=== PATIENT | female | born 1955 | race Caucasian/White ===

== ENCOUNTER → 2017-12-03 15:27 | Outpatient (CLI) | payer OTHER, SELFPAY | PROVIDERS: Visit Provider Physician Assistant | DX: M54.5 Low back pain (principal) | CPT/HCPCS: 87086 ==

== ENCOUNTER → 2017-12-03 16:09 | Outpatient (CLI) | payer OTHER, SELFPAY ==
--- NOTE | 2017-12-03 | DI.CT.S_ITS ---
PROCEDURE: CT ABDOMEN PELVIS WO CON INDICATIONS: Left flank pain TECHNIQUE: Noncontrast 5 mm thick sections acquired from the diaphragms to the symphysis. 5 mm thick coronal and sagittal reformats were then performed. For radiation dose reduction, the following was used: automated exposure control, adjustment of mA and/or kV according to patient size. COMPARISON: None. FINDINGS: Image quality: Excellent. Lung bases: Lung bases are clear. Heart size is normal. Urinary system: Both kidneys are normal in size. No right-sided kidney stone but there is a 3 mm anterior mid left kidney and a 4 mm lower third posterior mid kidney calculus neither of which appear obstructive. No hydronephrosis or perinephric fat stranding. Both ureters appear non-dilated throughout their expected courses. Bladder wall thickness is normal; no calcified bladder stones. Other solid organs: Liver is normal in size. Gallbladder appears normal. Pancreas is normal in contours. Spleen is normal in size. No adrenal nodules. Peritoneum and bowel: Unenhanced bowel loops demonstrate normal wall thickness and caliber. No free fluid or air. Nodes and vessels: No retroperitoneal or mesenteric adenopathy by size criteria. Aorta and inferior vena cava are normal in caliber. Abdominal wall: No ventral hernias. Pelvis: No free pelvic fluid. No inguinal hernias or adenopathy. Bones: No suspicious bony lesions. No vertebral body compression fractures. IMPRESSION: There are nonobstructive 3 mm and 4 mm left-sided renal collecting system calculi, and no hydronephrosis or hydroureter is found. Along the course of the ureters through the pelvis bilateral pelvic phleboliths and arterial calcifications can be seen and therefore the exact course of the ureters through the retroperitoneum to the bladder level cannot be fully evaluated and proven to be free of a very small (1-2 mm) possible calculus. However, the absence of urinary tract distention more superiorly would argue that these calcifications are external to the ureters. Dictated by: Ashutosh Desouza M.D. on 12/03/2017 at 16:52 Approved by: Ashutosh Desouza M.D. on 12/03/2017 at 16:57
== END ==
PROVIDERS: Visit Provider Physician Assistant
DX: N20.0 Calculus of kidney (principal); R10.9 Unspecified abdominal pain
CPT/HCPCS: 74176; 87086

== ENCOUNTER 2017-12-06 01:00 | Emergency (ER) | payer OTHER, SELFPAY ==
[2017-12-06 01:05] VITALS: BP 149/118; PULSE 108; RESP 80; TEMP 36.3; O2SAT 97; BMI 28.9
--- NOTE | 2017-12-06 01:38 | ED.ABDPAIN ---
HPI - Abdominal Pain General Chief Complaint: Urogenital-Female Stated Complaint: KIDNEY STONE Time Seen by Provider: 12/06/17 01:37 Source: patient Mode of arrival: ambulatory Limitations: no limitations History of Present Illness HPI narrative: The patient presents tonight with left flank and left lower quadrant pain that started about 10:00 p.m. tonight. She initially developed achiness, then sharp pain at the site. She now has nausea and vomiting. She has no fever or chills. She denies diarrhea or constipation. She had similar achy pain 2 days ago, she was seen in clinic. A CT was ordered that revealed left renal stone, but no ureter stones. The CT did discuss pelvic calcifications that the radiologist felt were not related to the urinary system. The patient denies dysuria, or hematuria tonight. She has never had a prior bout problem with kidney stones. Related Data Home Medications Medication Instructions Recorded Confirmed ASPIRIN (Aspirin EC) 81 mg PO Q DAY #0 09/27/10 12/03/17 atorvastatin 20 mg tablet 80 mg PO QDAY #0 tab 12/03/17 12/03/17 clopidogrel 75 mg tablet 75 mg PO DAILY 12/03/17 12/03/17 Previous Rx's Medication Instructions Recorded tamsulosin 0.4 mg capsule 0.4 mg PO DAILY #30 cap 12/03/17 hydrocodone-acetaminophen [[place]] 1 tab PO Q4H PRN #10 tab 12/06/17 ondansetron [Zofran ODT] 4 mg PO Q4H PRN 4 Days #10 tab 12/06/17 Allergies Allergy/AdvReac Type Severity Reaction Status Date / Time No Known Drug Allergies Allergy Verified 12/03/17 15:14 Review of Systems Review of Systems All systems reviewed & are unremarkable except as noted in HPI and below Constitutional Denies headache(s) and Denies weakness ENT Ears, Nose, Mouth, and Throat: Denies headache(s), Denies neck pain and Denies sore throat Cardiovascular Denies chest pain, Denies irregular heart rhythm, Denies lightheadedness, Denies palpitations, Denies dyspnea, Denies dyspnea on exertion and Denies orthopnea Respiratory Denies cough, Denies dyspnea, Denies dyspnea on exertion and Denies wheezing Gastrointestinal Gastrointestinal: Reports abdominal pain, Denies change in bowel habits, Denies diarrhea, Reports nausea and Reports vomiting Genitourinary Denies hematuria and Denies dysuria Musculoskeletal Denies back pain and Denies neck pain Integumentary/Breasts Denies rash Neurologic Denies headache(s) and Denies weakness Endocrine Denies palpitations Allergic/Immunologic Denies wheezing PFSH Medical History Hyperlipidemia (Acute) Kidney stone (Acute) Surgical History History of appendectomy (Acute) Social History Smoking Status: Former smoker alcohol intake: never Exam Initial Vital Signs Initial Vital Signs: Vital Signs Temperature 97.3 F L 12/06/17 01:05 Pulse Rate 108 H 12/06/17 01:05 Respiratory Rate 80 H 12/06/17 01:05 Blood Pressure 149/118 H 12/06/17 01:05 Pulse Oximetry 97 12/06/17 01:05 Const General: cooperative, healthy appearing and in distress (mild) HENMT Throat: posterior oropharynx normal Neck Neck: No JVD Resp Effort & Inspection: normal respiratory effort, able to speak in complete sentences, no respiratory distress and no use of accessory muscles Auscultation: clear to auscultation bilaterally, no rales, no rhonchi and no wheezes Cardio Rate: regular rate Rhythm: regular rhythm Heart Sounds: no click, no gallops, no murmurs and no rubs Pulses: normal peripheral pulses GI Inspection: non-distended Palpation: soft, no hepatosplenomegaly, No guarding, No pulsatile mass and tender (LLQ, but without peritoneal signs.) Auscultation: normal bowel sounds Back/Spine/Pelvis Back: No CVA tenderness Skin General: no rashes or lesions noted Neuro General: alert, oriented x3, gait normal and no focal motor deficits Speech: speech normal Extrem General: full ROM and no clubbing, cyanosis or edema Course Course Narrative: The patient required IV hydration. She had a couple bouts of pain, but prior to discharge she was pain-free. She had a CT 2 days ago showing left renal calculi. She has hematuria tonight. I think she is or has passed a stone. She is doing much better at the time of discharge. Orders Ordered: ED Orders 12/06/17 01:48 Complete Blood Count AUTO DIFF Stat Comprehensive Metabolic Panel Stat 12/06/17 05:00 UA Complete [Urinalysis and Microscopic] Stat Discontinued Medications Hydrocodone Bitart/Acetaminophen (Vicodin Prepack) 1 bottle MISC SEEINSTR ONE Stop: 12/06/17 05:39 Last Admin: 12/06/17 06:08 Dose: 1 bottle Hydromorphone HCl (Dilaudid) 1 mg IV NOW ONE Stop: 12/06/17 02:45 Last Admin: 12/06/17 02:49 Dose: 1 mg Hydromorphone HCl (Dilaudid) 1 mg IV NOW ONE Stop: 12/06/17 04:09 Last Admin: 12/06/17 05:01 Dose: 1 mg Sodium Chloride (Normal Saline 0.9%) 1,000 mls @ 150 mls/hr IV CONT TIARA Last Admin: 12/06/17 02:08 Dose: 150 mls/hr Ketorolac Tromethamine (Toradol) 30 mg IV NOW ONE Stop: 12/06/17 01:55 Last Admin: 12/06/17 02:08 Dose: 30 mg Ondansetron HCl (Zofran) 4 mg IV NOW ONE Stop: 12/06/17 01:55 Last Admin: 12/06/17 02:08 Dose: 4 mg Ondansetron HCl (Zofran) 4 mg IV NOW ONE Stop: 12/06/17 05:38 Last Admin: 12/06/17 06:08 Dose: 4 mg Ondansetron HCl (Zofran Odt Prepack) 1 bottle MISC SEEINSTR ONE Stop: 12/06/17 05:39 Last Admin: 12/06/17 06:08 Dose: 1 bottle Vital Signs - 8 hr 12/06/17 01:05 12/06/17 04:00 12/06/17 05:33 Temperature 97.3 F L Pulse Rate 108 H 72 80 Respiratory Rate 80 H 18 18 Blood Pressure 149/118 H Blood Pressure [Left Arm] 130/77 113/61 Pulse Oximetry 97 96 97 MDM - Abdominal Pain Lab Data Result diagrams: 12/06/17 01:48 12/06/17 01:48 Lab Results 12/06/17 12/06/17 12/06/17 Range/Units 01:48 01:48 05:00 WBC 10.3 (4.5-11.0) X10^3/uL RBC 4.94 (4.0-5.2) X10^6/uL Hgb 14.2 (12.0-16.0) g/dL Hct 40.3 (36-46) % MCV 81.5 (80-100) fL MCH 28.7 (26-34) PG MCHC 35.2 (30-36) % RDW 14.1 (11.6-14.8) % Plt Count 237 (150-400) X10^3/uL Neut % (Auto) 87.4 H (50-75) % Lymph % (Auto) 8.1 L (25-40) % Stearns % (Auto) 3.9 (3-14) % Eos % (Auto) 0.4 L (2-4) % Baso % (Auto) 0.2 (0-2) % Neut # (Auto) 9000 H (2794-2074) /uL Sodium 143 (137-145) mmol/L Potassium 3.3 L (3.4-5.1) mmol/L Chloride 105 (98-107) mmol/L Carbon Dioxide 24 (22-32) mmol/L BUN 12 (7-17) mg/dL Creatinine 0.80 (0.52-1.04) mg/dL Estimated GFR > 60.0 (>60) mL/min BUN/Creatinine Ratio 15.0 (6-22) Glucose 152 H (80-110) mg/dL Calcium 9.3 (8.4-10.2) mg/dL Total Bilirubin 0.8 (0.2-1.3) mg/dL AST 22 (14-36) IU/L ALT 40 (9-52) IU/L Alkaline Phosphatase 82 (38-126) U/L Total Protein 7.2 (6.3-8.2) g/dL Albumin 4.7 (3.5-5.0) g/dL Globulin 2.5 (1.7-4.1) g/dL Albumin/Globulin Ratio 1.9 (1.0-2.8) Urine Color Yellow Urine Appearance Clear Urine pH 5.0 (4.5-8.0) Ur Specific [place] >=1.030 H (1.000-1.035) Urine Protein Trace H (Negative) Urine Glucose (UA) Negative (Normal) g/dL Urine Ketones Trace H (NEGATIVE) Urine Occult Blood 3+ H (Negative) Urine Nitrate Negative (Negative) Urine Bilirubin Negative (NEGATIVE) Urine Urobilinogen 0.2 (0.2) E.U./dL Ur Leukocyte Esterase Negative (NEGATIVE) Urine RBC 10-30/hpf H (0-5/HPF) Urine WBC None seen (0-5/HPF) Ur Squamous Epith Cells 1-5 /hpf Calcium Oxalate Crystal Moderate H (None) Urine Bacteria Occasional (0-1) (None) Hyaline Casts 1-5/lpf (None) Ur Culture Indicated? Cult not indicated Micro UA Comment Not Reportable MDM Narrative Medical decision making narrative: She has hematuria and symptoms consistent with a kidney stone. She has been discharged home on [place] for pain and Zofran for nausea. Discharge Plan Departure Patient Disposition: Home Clinical Impression: Kidney stone on left side Discharge Date/Time: 12/06/17 06:15 Interventions: ED Discharge Assessment Last Done: 12/06/17 06:15 Instructions: DI for Kidney Stones Activity Restrictions/Additional Instructions: Drink plenty of water, be sure you are urinating regularly. [place] every 4 hr as needed for nausea. Her Zofran every 4 hr as needed for nausea. Return here for worsening pain, fever or persistent vomiting. Screening her urine to check for a passed kidney stone. Follow up with her physician next week if symptoms are ongoing. Prescriptions: New hydrocodone-acetaminophen [[place]] 5-325 mg tablet 1 tab PO Q4H PRN (Reason: pain) Qty: 10 RF: 0 ondansetron [Zofran ODT] 4 mg tablet,disintegrating 4 mg PO Q4H PRN (Reason: nausea and vomiting) 4 Days Qty: 10 RF: 0 No Action clopidogrel 75 mg tablet 75 mg PO DAILY RF: 0 tamsulosin [Flomax] 0.4 mg capsule 0.4 mg PO DAILY Qty: 30 RF: 0 ASPIRIN (Aspirin EC) 81 mg PO Q DAY Qty: 0 RF: 0 atorvastatin [Lipitor] 20 mg tablet 80 mg PO QDAY Qty: 0 RF: 0
[2017-12-06 01:57] LABS: Add Manual Diff / Slide Review NO; Basophils Percent Auto 0.2 % (0-2); Eosinophils Percent Auto 0.4 % (2-4); Hematocrit 40.3 % (36-46); Hemoglobin 14.2 g/dL (12.0-16.0); Lymphocytes Percent Auto 8.1 % (25-40); Mean Corpuscular HGB Conc 35.2 % (30-36); Mean Corpuscular Hemoglobin 28.7 PG (26-34); Mean Corpuscular Volume 81.5 fL (80-100); Monocytes Percent Auto 3.9 % (3-14); Neutrophils Absolute Auto 9000 /uL (3000-5900); Neutrophils Percent Auto 87.4 % (50-75); Platelet Count 237 X10^3/uL (150-400); Red Blood Cell Count 4.94 X10^6/uL (4.0-5.2); Red Cell Distribution Width 14.1 % (11.6-14.8); White Blood Cell Count 10.3 X10^3/uL (4.5-11.0)
[2017-12-06 02:04] LABS: Alanine Aminotransferase 40 IU/L (9-52); Albumin 4.7 g/dL (3.5-5.0); Albumin Globulin Ratio 1.9 (1.0-2.8); Alkaline Phosphatase 82 U/L (38-126); Aspartate Aminotransferase 22 IU/L (14-36); Bilirubin Total 0.8 mg/dL (0.2-1.3); Blood Urea Nitrogen 12 mg/dL (7-17); Calcium 9.3 mg/dL (8.4-10.2); Carbon Dioxide 24 mmol/L (22-32); Chloride 105 mmol/L (98-107); Estimated Glomerular Filt Rate > 60.0 mL/min (>60); Globulin 2.5 g/dL (1.7-4.1); Glucose 152 mg/dL (80-110); HEMOLYSIS 15 (0-50); Potassium 3.3 mmol/L (3.4-5.1); Sodium 143 mmol/L (137-145); Total Protein 7.2 g/dL (6.3-8.2)
[2017-12-06] MEDS: KETOROLAC 60 MG/2 ML VIAL 30 MG IV (02:08)
[2017-12-06] MEDS: ONDANSETRON 4 MG/2 ML INJ IV ×2 (02:08→06:08)
[2017-12-06] MEDS: SODIUM CHLORIDE 0.9% 1,000 ML 150 ML IV (02:08)
[2017-12-06] MEDS: HYDROMORPHONE 1 MG INJ IV ×2 (02:49→05:01)
--- NOTE | 2017-12-06 03:53 | PC.NURSE ---
Pt's significant other came out to [facility] stating pt is in pain again. Dr Fernandez aware.
[2017-12-06 04:00] VITALS: BP 130/77; PULSE 72; RESP 18; O2SAT 96
[2017-12-06 05:08] LABS: WBC Urine None Seen (0-5/HPF)
[2017-12-06 05:09] LABS: Appearance Urine UA CLEAR; Bilirubin Urine UA NEGATIVE (NEGATIVE); Color Urine UA YELLOW; Glucose Urine UA NEGATIVE (Normal); Ketones Urine UA TRACE (NEGATIVE); Leukocyte Esterase Urine UA NEGATIVE (NEGATIVE); Nitrite Urine UA Negative (Negative); Occult Blood Urine UA 3+ (Negative); Protein Urine UA TRACE (Negative); Specific Gravity Urine UA >=1.030 (1.000-1.035); Urobilinogen Urine UA 0.2 E.U./dL (0.2)
[2017-12-06 05:14] LABS: RBC Urine 10-30/HPF (0-5/HPF); Squamous Epithelial Cell Urine 1-5 /HPF
[2017-12-06 05:15] LABS: Bacteria Urine Occasional (0-1); Calcium Oxalate Crystals Urine Moderate; Hyaline Casts Urine 1-5/LPF
[2017-12-06 05:16] LABS: Culture Indicated Urine Cult Not Indicated
[2017-12-06 05:33] VITALS: BP 113/61; PULSE 80; RESP 18; O2SAT 97
[2017-12-06] MEDS: ONDANSETRON 4 MG ODT PREPACK 1 BOTTLE MISC (06:08)
[2017-12-06] MEDS: HYDROCODONE/ACET 5/325 PREPACK 1 BOTTLE MISC (06:08)
== END 2017-12-06 06:15 | disposition home or self-care (01) ==
PROVIDERS: Emergency Provider Emergency Medicine
DX: N20.0 Calculus of kidney (principal)
CPT/HCPCS: 36591; 80053; 81001; 85025; 96361; 96374; 96375; 96376; 99283; 99284; J1170; J1885; J2405

== ENCOUNTER → 2017-12-26 07:08 | Outpatient (CLI) | payer OTHER, SELFPAY ==
--- NOTE | 2017-12-26 | DI.RAD.S_ITS ---
PROCEDURE: XR KUB INDICATIONS: KIDNEY STONES TECHNIQUE: One view of the abdomen acquired. COMPARISON: [facility], CR, XR ABDOMEN 1 VIEW, 12/15/2017, 12:30. FINDINGS: Surgical changes and devices: A left-sided ureteral stent is noted.. Bowel: Bowel gas pattern is normal. Soft tissues: No suspicious abdominal calcifications. Visualized solid organ contours appear normal in size. Previously described 5 mm calcification in left hemipelvis is no longer present. Bones: No suspicious bony lesions. IMPRESSION: No gross renal calculi or ureteral calculi are seen. Left-sided ureteral stent in place. Dictated by: Geovani Tuttle M.D. on 12/26/2017 at 9:05 Approved by: Geovani Tuttle M.D. on 12/26/2017 at 9:07
[2017-12-26 08:27] LABS: BUN Creatinine Ratio 13.3 (6-22); Blood Urea Nitrogen 8 mg/dL (7-17); Calcium 9.6 mg/dL (8.4-10.2); Carbon Dioxide 27 mmol/L (22-32); Chloride 105 mmol/L (98-107); Cholesterol 140 mg/dL (140-199); Estimated Glomerular Filt Rate > 60.0 mL/min (>60); Glucose 121 mg/dL (80-110); HDL Cholesterol 43 mg/dL (40-60); HEMOLYSIS < 15 (0-50); LDL Cholesterol Calculated 76 mg/dL (<100); Sodium 146 mmol/L (137-145); Triglycerides 105 mg/dL (35-150)
== END ==
PROVIDERS: PCP Physician Assistant; Visit Provider Specialist
DX: N20.0 Calculus of kidney (principal); Z96.0 Presence of urogenital implants; I25.10 Atherosclerotic heart disease of native coronary artery without angina pectoris; I25.2 Old myocardial infarction; E87.6 Hypokalemia; R73.09 Other abnormal glucose
CPT/HCPCS: 36415; 74018; 80048; 80061

== ENCOUNTER → 2018-02-03 07:06 | Outpatient (CLI) | payer OTHER, SELFPAY ==
--- NOTE | 2018-02-03 07:11 | DI.RAD.S_ITS ---
PROCEDURE: XR KUB INDICATIONS: KIDNEY STONES TECHNIQUE: One view of the abdomen acquired. COMPARISON: [facility], CR, XR KUB, 12/26/2017, 7:12. FINDINGS: Surgical changes and devices: Left ureteral stent is removed. Bowel: Bowel gas pattern is normal. There is a large amount of stool in the right colon. Soft tissues: No suspicious abdominal calcifications. Visualized solid organ contours appear normal in size. Bones: No suspicious bony lesions. IMPRESSION: No residual renal calculi visualized. Dictated by: Ko Macario M.D. on 02/03/2018 at 8:07 Approved by: Ko Macario M.D. on 02/03/2018 at 8:07
[2018-02-03 08:39] LABS: Uric Acid 4.8 mg/dL (2.5-6.2)
[2018-02-05 13:56] LABS: Parathyroid Hormone Int 73 pg/mL (14-64)
== END ==
PROVIDERS: PCP Physician Assistant; Visit Provider Specialist
DX: N20.0 Calculus of kidney (principal)
CPT/HCPCS: 36415; 74018; 83970; 84550; 86304

== ENCOUNTER → 2018-06-16 08:11 | Outpatient (CLI) | payer OTHER, SELFPAY ==
[2018-06-16 09:54] LABS: Calcium 9.2 mg/dL (8.4-10.2); Uric Acid 4.3 mg/dL (2.5-6.2)
[2018-06-18 14:35] LABS: Parathyroid Hormone Int 86 pg/mL (14-64)
== END ==
PROVIDERS: Family Provider Physician Assistant; PCP Physician Assistant; Visit Provider Specialist
DX: N20.0 Calculus of kidney (principal)
CPT/HCPCS: 36415; 82310; 83970; 84550

== ENCOUNTER → 2019-01-21 08:21 | Outpatient (CLI) | payer OTHER, SELFPAY ==
[2019-01-21 08:31] LABS: Bacteria Urine None Seen; RBC Urine None Seen (0-5/HPF); WBC Urine None Seen (0-5/HPF)
[2019-01-21 09:13] LABS: Appearance Urine UA CLEAR; Bilirubin Urine UA NEGATIVE (NEGATIVE); Color Urine UA YELLOW; Glucose Urine UA NEGATIVE (Negative); Ketones Urine UA NEGATIVE (NEGATIVE); Leukocyte Esterase Urine UA NEGATIVE (NEGATIVE); Nitrite Urine UA NEGATIVE (Negative); Occult Blood Urine UA NEGATIVE (Negative); Protein Urine UA NEGATIVE (Negative); Specific Gravity Urine UA <=1.005 (1.000-1.035); Urobilinogen Urine UA 0.2 E.U./dL (0.2)
[2019-01-21 09:16] LABS: Hematocrit 42.1 % (36-46); Hemoglobin 14.7 g/dL (12.0-16.0); pH Urine UA 5.5 (4.5-8.0)
[2019-01-21 09:21] LABS: Culture Indicated Urine Cult Not Indicated; Urine Comments Microscopic Normal
[2019-01-21 10:01] LABS: Creatinine Urine Random 150.9 mg/dL; Protein (Total) Urine Random 9 mg/dL (0-12); Protein Creatinine Ratio Urine 0.05 GRAM/24H
[2019-01-21 10:06] LABS: Blood Urea Nitrogen 9 mg/dL (7-17); Calcium 9.7 mg/dL (8.4-10.2); Carbon Dioxide 29 mmol/L (22-32); Chloride 100 mmol/L (98-107); Estimated Glomerular Filt Rate > 60.0 mL/min (>60); Glucose 127 mg/dL (80-110); HEMOLYSIS < 15 (0-50); Potassium 3.6 mmol/L (3.4-5.1); Sodium 141 mmol/L (137-145)
[2019-01-23 15:14] LABS: Parathyroid Hormone Int 64 pg/mL (14-64)
== END ==
PROVIDERS: PCP Physician Assistant; Visit Provider Student in an Organized Health Care Education/Training Program
DX: N05.9 Unspecified nephritic syndrome with unspecified morphologic changes (principal); D64.9 Anemia, unspecified; N30.00 Acute cystitis without hematuria; R80.9 Proteinuria, unspecified; N25.81 Secondary hyperparathyroidism of renal origin
CPT/HCPCS: 36415; 80048; 81001; 82570; 83970; 84156; 85014; 85018

== ENCOUNTER → 2019-01-22 06:52 | Outpatient (CLI) | payer OTHER, SELFPAY ==
[2019-01-22 08:37] LABS: Alanine Aminotransferase 35 IU/L (9-52); Albumin 4.9 g/dL (3.5-5.0); Alkaline Phosphatase 63 U/L (38-126); Aspartate Aminotransferase 26 IU/L (14-36); BUN Creatinine Ratio 11.7 (6-22); Bilirubin Total 1.2 mg/dL (0.2-1.3); Blood Urea Nitrogen 7 mg/dL (7-17); Carbon Dioxide 30 mmol/L (22-32); Chloride 100 mmol/L (98-107); Cholesterol 140 mg/dL (140-199); Estimated Glomerular Filt Rate > 60.0 mL/min (>60); Globulin 2.4 g/dL (1.7-4.1); Glucose 121 mg/dL (80-110); HDL Cholesterol 49 mg/dL (40-60); HEMOLYSIS < 15 (0-50); LDL Cholesterol Calculated 72 mg/dL (<100); Potassium 3.5 mmol/L (3.4-5.1); Sodium 142 mmol/L (137-145); Total Protein 7.3 g/dL (6.3-8.2); Triglycerides 94 mg/dL (35-150)
== END ==
PROVIDERS: PCP Physician Assistant; Visit Provider Internal Medicine Cardiovascular Disease
DX: E78.01 Familial hypercholesterolemia (principal); I25.10 Atherosclerotic heart disease of native coronary artery without angina pectoris
CPT/HCPCS: 36415; 80053; 80061

== ENCOUNTER → 2019-01-29 16:19 | Outpatient (CLI) | payer OTHER, SELFPAY ==
[2019-01-29 17:38] LABS: Add Manual Diff / Slide Review NO; Basophils Absolute Auto 0 /uL (0-100); Basophils Percent Auto 0.7 % (0-2); Eosinophils Absolute Auto 100 /uL (0-450); Eosinophils Percent Auto 1.3 % (2-4); Hemoglobin 13.9 g/dL (12.0-16.0); Lymphocytes Absolute Auto 1200 /uL (1100-4500); Lymphocytes Percent Auto 21.2 % (25-40); Mean Corpuscular HGB Conc 34.7 % (30-36); Mean Corpuscular Hemoglobin 29.2 PG (26-34); Mean Corpuscular Volume 84.3 fL (80-100); Monocytes Absolute Auto 300 /uL (0-900); Monocytes Percent Auto 5.6 % (3-14); Neutrophils Absolute Auto 4100 /uL (1500-7000); Neutrophils Percent Auto 71.2 % (50-75); Platelet Count 264 X10^3/uL (150-400); Red Blood Cell Count 4.75 X10^6/uL (4.0-5.2); Red Cell Distribution Width 13.8 % (11.6-14.8); White Blood Cell Count 5.8 X10^3/uL (4.5-11.0)
[2019-01-29 17:50] LABS: Hemoglobin A1C% w Est Avg Glu 5.3 % (4.0-6.0)
[2019-01-29 19:09] LABS: Thyroid Stimulating Hormone 1.35 uIU/mL (0.47-4.68)
== END ==
PROVIDERS: PCP Physician Assistant; Visit Provider Hospitalist
DX: R63.4 Abnormal weight loss (principal)
CPT/HCPCS: 36415; 83036; 84443; 85025

== ENCOUNTER → 2019-02-06 08:22 | Outpatient (CLI) | payer OTHER, SELFPAY ==
--- NOTE | 2019-02-06 08:24 | DI.MG.S_ITS ---
BILATERAL DIGITAL SCREENING MAMMOGRAM 3D/2D WITH CAD: 02/06/2019 CLINICAL: Routine screening. Comparison is made to exams dated: 08/09/2015 mammogram, 07/31/2015 mammogram, and 04/29/2014 mammogram - [facility]. There are scattered fibroglandular elements in both breasts. Current study was also evaluated with a Computer Aided Detection (CAD) system. No significant masses, calcifications, or other findings are seen in either breast. There has been no significant interval change. IMPRESSION: NEGATIVE There is no mammographic evidence of malignancy. A 1 year screening mammogram is recommended. This exam was interpreted at Station ID: [id number]. NOTE: For mammograms, a report in lay terms will be sent to the patient. Approximately 15% of breast malignancies will not be visualized mammographically. In the management of a palpable breast mass, a negative mammogram must not discourage biopsy of a clinically suspicious lesion. Electronically Signed By: Sulaiman brasher/estela:02/07/2019 11:24:28 letter sent: Normal Exam ACR BI-RADS Category 1: Negative [id number]
== END ==
PROVIDERS: PCP Physician Assistant; Visit Provider Physician Assistant
DX: Z12.31 Encounter for screening mammogram for malignant neoplasm of breast (principal)
CPT/HCPCS: 77063; 77067

== ENCOUNTER → 2019-11-16 07:16 | Outpatient (CLI) | payer OTHER, SELFPAY ==
[2019-11-16 08:44] LABS: Hematocrit 40.5 % (36-46)
[2019-11-16 08:54] LABS: Creatinine Urine Random 21.8 mg/dL; Protein (Total) Urine Random 13 mg/dL (0-12); Protein Creatinine Ratio Urine 0.59 GRAM/24H
[2019-11-16 08:58] LABS: BUN Creatinine Ratio 17.9 (6-22); Blood Urea Nitrogen 10 mg/dL (7-17); Calcium 9.4 mg/dL (8.4-10.2); Carbon Dioxide 30 mmol/L (22-32); Chloride 102 mmol/L (98-107); Estimated Glomerular Filt Rate > 60.0 mL/min (>60); Glucose 95 mg/dL (80-110); HEMOLYSIS < 15 (0-50); Potassium 3.8 mmol/L (3.4-5.1); Sodium 139 mmol/L (137-145)
[2019-11-17 07:13] LABS: Parathyroid Hormone Int 41 pg/mL (15-65)
== END ==
PROVIDERS: PCP Student in an Organized Health Care Education/Training Program; Referring Provider Student in an Organized Health Care Education/Training Program; Visit Provider Student in an Organized Health Care Education/Training Program
DX: N05.9 Unspecified nephritic syndrome with unspecified morphologic changes (principal); R80.9 Proteinuria, unspecified; D64.9 Anemia, unspecified; N25.81 Secondary hyperparathyroidism of renal origin
CPT/HCPCS: 36415; 80048; 82570; 83970; 84156; 85014; 85018

== ENCOUNTER 2020-03-23 19:39 | Emergency (ER) | payer OTHER, SELFPAY ==
[2020-03-23 19:45] VITALS: BP 164/91; PULSE 100; RESP 18; TEMP 36.8; O2SAT 96
--- NOTE | 2020-03-23 19:54 | ED.GENADULT ---
HPI - General Adult General Chief complaint: Skin/Abscess/Foreign Body Stated complaint: states infection left ear and cheek Time Seen by Provider: 03/23/20 19:40 Source: patient Mode of arrival: Ambulatory Limitations: no limitations History of Present Illness HPI narrative: Patient is a 64-year-old female. Nondiabetic who is here for evaluation of redness and pain to the outside of her left ear. Has been going on for the past day. She thinks that is spreading down to her cheek on the left side. No problems swallowing. No problems hearing no trauma. She is unsure as to how the symptoms started. Related Data Home Medications Medication Instructions Recorded Confirmed ASPIRIN (Aspirin EC) 81 mg PO Q DAY #0 09/27/10 01/29/19 clopidogrel 75 mg tablet 75 mg PO DAILY 12/03/17 01/29/19 Previous Rx's Medication Instructions Recorded tamsulosin 0.4 mg capsule 0.4 mg PO DAILY #30 cap 12/03/17 clotrimazole-betamethasone 1 1 applictn TOP BID #45 gram 06/04/19 %-0.05 % topical cream atorvastatin 20 mg tablet 80 mg PO QDAY #90 tab 09/15/19 amoxicillin-pot clavulanate 1 tab PO BID 6 Days #12 tab 03/23/20 [Augmentin] Allergies Allergy/AdvReac Type Severity Reaction Status Date / Time No Known Drug Allergies Allergy Verified 01/29/19 15:45 Review of Systems Constitutional Constitutional: Denies chills and Denies fever(s) ENT Ears, Nose, Mouth, and Throat: Denies vertigo, Denies dizziness, Denies ear discharge, Reports otalgia, Denies sinus pressure and Denies sore throat Comments: Redness around her left ear Cardiovascular Cardiovascular: Denies dyspnea Respiratory Respiratory: Denies cough and Denies dyspnea Integumentary/Breasts Comments: Redness around her left ear Neurologic Neurologic: Denies vertigo and Denies dizziness Hematologic/Lymphatic Hematologic/Lymphatic: Denies easy bleeding and Denies easy bruising Allergic/Immunologic Allergic/Immunologic: Denies urticaria Patient History Medical History Hyperlipidemia Kidney stone Surgical History History of appendectomy Social History Smoking Status: Former smoker Tobacco: How many years used: 25 second hand exposure: No alcohol intake: never substance use type: does not use Smoking Status: Former smoker Substance Use Type: does not use Exam Initial Vital Signs Initial Vital Signs: Vital Signs Temperature 98.2 F 03/23/20 19:45 Pulse Rate 100 H 03/23/20 19:45 Respiratory Rate 18 03/23/20 19:45 Blood Pressure 164/91 H 03/23/20 19:45 Pulse Oximetry 96 03/23/20 19:45 Const General: cooperative and comfortable HENMT Head: normal to inspection and normocephalic Ears: TM's normal bilaterally, EAC's normal, external ear abnormal auricular tenderness on the left and other (Redness around the a Auricular area); no auricular hematomas and hearing grossly not impaired Nose: external nose normal Face and sinus: other (Redness in the pre-auricular area left side of face) Mouth: oral mucosae normal Skin Other: See HEENT section Neuro General: patient alert, patient awake and patient oriented x3 Extrem General: capillary refill normal Psych Appearance: grossly normal and well kempt Course Orders Ordered: Discontinued Medications Amoxicillin/Clavulanate Potassium (Amoxicillin/Clav 875/125 Mg) 1 tab PO NOW ONE Stop: 03/23/20 19:56 Last Admin: 03/23/20 19:58 Dose: 1 tab Documented by: RMARTIN Amoxicillin/Clavulanate Potassium (Amoxicillin/Clav 875/125 Mg) 1 tab PO NOW ONE Stop: 03/23/20 19:59 Last Admin: 03/23/20 20:03 Dose: 1 tab Documented by: RMARTIN Amoxicillin/Clavulanate Potassium (Amoxicillin/Clav 875/125 Mg) 1 tab PO NOW ONE Stop: 03/23/20 19:59 Last Admin: 03/23/20 20:03 Dose: 1 tab Documented by: RMMCKINLEYIN Vital Signs Vital signs: Vital Signs - 8 hr 03/23/20 19:45 Temperature 98.2 F Pulse Rate 100 H Respiratory Rate 18 Blood Pressure 164/91 H Pulse Oximetry 96 Medical Decision Making MDM Narrative Medical decision making narrative: She has redness around the a regular area of the left ear and on the pre auricular area on the left side of her face. There is no abscess. No hematoma. The external auditory canal and tympanic membrane are unremarkable. There is no signs of trauma. Patient was given a dose of antibiotics here in the ER. Given the fact that tomorrow is a holiday and all the pharmacies are closed she was given a 2nd dose of antibiotics that she can take tomorrow and then a prescription that she can fill for the remainder of the course. Feel we can hold on radiologic studies. She has no indication of sepsis. She was given return precautions and follow-up instructions. She expressed understanding and agreement. Discharge Plan Departure Patient Disposition: Home Clinical Impression: Cellulitis Instructions: DI for Cellulitis -- Adult Activity Restrictions/Additional Instructions: Take the antibiotics as directed. Return to the emergency department for any new or worsening symptoms Prescriptions: New amoxicillin-pot clavulanate [Augmentin] 875-125 mg tablet 1 tab PO BID 6 Days Qty: 12 RF: 0 No Action clopidogrel 75 mg tablet 75 mg PO DAILY RF: 0 tamsulosin [Flomax] 0.4 mg capsule 0.4 mg PO DAILY Qty: 30 RF: 0 ASPIRIN (Aspirin EC) 81 mg PO Q DAY Qty: 0 RF: 0 clotrimazole-betamethasone [Lotrisone] 1-0.05 % cream 1 applictn TOP BID Qty: 45 RF: 0 atorvastatin [Lipitor] 20 mg tablet 80 mg PO QDAY Qty: 90 RF: 0 Referrals: Cher Simms MD [Primary Care Provider] -
[2020-03-23] MEDS: AMOXICILLIN/CLAV 875/125 MG 1 TAB PO ×3 (19:58→20:03)
== END 2020-03-23 20:08 | disposition home or self-care (01) ==
PROVIDERS: Emergency Provider Emergency Medicine; PCP Student in an Organized Health Care Education/Training Program
DX: L03.211 Cellulitis of face (principal); E78.5 Hyperlipidemia, unspecified; Z87.442 Personal history of urinary calculi
CPT/HCPCS: 99281; 99283

== ENCOUNTER → 2020-07-18 17:35 | Outpatient (CLI) | payer OTHER, SELFPAY ==
[2020-07-18 18:03] LABS: HEMOLYSIS < 15 (0-50); Potassium 3.7 mmol/L (3.4-5.1)
[2020-07-18 18:04] LABS: BUN Creatinine Ratio 25.8 (6-22); Blood Urea Nitrogen 17 mg/dL (7-17); Calcium 9.7 mg/dL (8.4-10.2); Carbon Dioxide 27 mmol/L (22-32); Chloride 105 mmol/L (98-107); Estimated Glomerular Filt Rate > 60.0 mL/min (>60); Glucose 112 mg/dL (80-110); Sodium 140 mmol/L (137-145)
== END ==
PROVIDERS: PCP Student in an Organized Health Care Education/Training Program; Referring Provider Student in an Organized Health Care Education/Training Program; Visit Provider Student in an Organized Health Care Education/Training Program
DX: E87.6 Hypokalemia (principal)
CPT/HCPCS: 36415; 80048

== ENCOUNTER → 2020-07-26 07:37 | Outpatient (CLI) | payer OTHER, SELFPAY ==
[2020-07-26 08:47] LABS: BUN Creatinine Ratio 25.4 (6-22); Blood Urea Nitrogen 15 mg/dL (7-17); Calcium 9.5 mg/dL (8.4-10.2); Carbon Dioxide 27 mmol/L (22-32); Chloride 105 mmol/L (98-107); Estimated Glomerular Filt Rate > 60.0 mL/min (>60); Glucose 112 mg/dL (80-110); HEMOLYSIS < 15 (0-50); Potassium 4.5 mmol/L (3.4-5.1); Sodium 140 mmol/L (137-145)
== END ==
PROVIDERS: PCP Student in an Organized Health Care Education/Training Program; Referring Provider Student in an Organized Health Care Education/Training Program; Visit Provider Student in an Organized Health Care Education/Training Program
DX: E87.6 Hypokalemia (principal); E83.42 Hypomagnesemia
CPT/HCPCS: 36415; 80048; 83735